=== PATIENT | female | born 1985 | race Hispanic/Latino ===

== ENCOUNTER 2017-10-25 18:50 | Emergency (ER) | payer MEDICAID, OTHER ==
[2017-10-25] MEDS ORDERED: Albuterol-Ipratrop 3 mg / 0.5 (3 ml) UD INH STA (19:35)
--- NOTE | 2017-10-25 21:14 | ED PDOC ---
HPI: Asthma Time Seen by Provider: 10/25/17 19:19 Chief Complaint (Nursing): Shortness Of Breath Chief Complaint (Provider): Asthma History Per: Patient History/Exam Limitations: no limitations Onset/Duration Of Symptoms: Days (one day) Additional Complaint(s): Selena Monteiro, a 32 year old patient presents to the Emergency Department complaining of asthma exacerbating onset one day. Reports of using her Albuterol inhaler and nebulizer with pump prior to arrival. Denies nasal discharge or sore throat. PMD: Gordon Syed Past Medical History Reviewed: Historical Data, Nursing Documentation, Vital Signs Vital Signs: Last Vital Signs Temp 100.1 F H 10/25/17 18:56 Pulse 92 H 10/25/17 18:56 Resp 19 10/25/17 18:56 BP 113/58 L 10/25/17 18:56 Pulse Ox 98 10/25/17 18:56 - Medical History PMH: Asthma Other PMH: obesity - Surgical History Other surgeries: gastric sleeve - Family History Family History: States: Other Other Family History: asthma - Social History Current smoker - smoking cessation education provided: Yes - Immunization History Hx Tetanus Toxoid Vaccination: No Hx Influenza Vaccination: Yes (2014) - Home Medications Home Medications: Ambulatory Orders Medication Instructions Recorded Dicyclomine [Bentyl] 20 mg PO Q12 PRN #20 tab 03/04/16 Ondansetron ODT [Zofran ODT] 4 mg PO Q6 PRN #16 odt 03/04/16 Ciprofloxacin [Cipro] 500 mg PO BID #14 tab 05/07/16 Ondansetron [Zofran] 4 mg PO Q6H PRN #10 tab 05/07/16 traMADol [Ultram] 50 mg PO TID PRN #12 tab 05/07/16 Nitrofurantoin Macrocrystals 100 mg PO BID #10 cap 12/05/16 [Macrobid] Azithromycin 1 tab PO DAILY #6 tab 10/25/17 Prednisone 50 mg PO DAILY #5 tablet 10/25/17 - Allergies Allergies/Adverse Reactions: Allergies Allergy/AdvReac Type Severity Reaction Status Date / Time seafood Allergy RASH Uncoded 10/25/17 18:56 Review of Systems ROS Statement: Except As Marked, All Systems Reviewed And Found Negative (As oer HPI, otherwise neagtive) ENT: Negative for: Nose Discharge, Throat Pain Cardiovascular: Positive for: Light Headedness. Negative for: Chest Pain Respiratory: Positive for: Cough, Shortness of Breath, Pleuritic Pain, Wheezing Physical Exam - Reviewed Nursing Documentation Reviewed: Yes Vital Signs Reviewed: Yes - Physical Exam Appears: Positive for: Non-toxic, In Acute Distress (mild respiratory) Head Exam: Positive for: ATRAUMATIC, NORMOCEPHALIC Skin: Positive for: Warm, Dry Eye Exam: Positive for: EOMI, PERRL ENT: Positive for: Pharynx Is (clear). Negative for: Pharyngeal Erythema, Tonsillar Exudate Neck: Positive for: Painless ROM, Supple Cardiovascular/Chest: Positive for: Regular Rate, Rhythm, Chest Non Tender. Negative for: Murmur Respiratory: Positive for: Respiratory Distress (mild tachypnea). Negative for : Rales, Wheezing Gastrointestinal/Abdominal: Positive for: Soft. Negative for: Tenderness Back: Positive for: Normal Inspection. Negative for: Decreased ROM Extremity: Negative for: Pedal Edema, Deformity Lymphatic: Negative for: Adenopathy Neurologic/Psych: Positive for: Alert. Negative for: Motor/Sensory Deficits - ECG ECG: Positive for: Interpreted By Nc ECG Rhythm: Positive for: Normal ST Segment, Sinus Rhythm, Atrial Fibrillation O2 Sat by Pulse Oximetry: 98 (RA) Pulse Ox Interpretation: Normal - Radiology X-Ray Interpretation: Infiltrates (RML) Medical Decision Making Medical Decision Making: Time: 19:20 Initial Impression: Asthma Initial Plan: --Urine dipstick --Urine --Chest X-ray --Albuterol/ Ipratropium 9ml INH --Peak Flow Pre/Post TX --Influenza A B --Reevaluation Scribe Attestation: Documented by Micheal Benson, acting as a scribe for Gin Zheng MD Provider Scribe Attestation: All medical record entries made by the Scribe were at my direction and personally dictated by me. I have reviewed the chart and agree that the record accurately reflects my personal performance of the history, physical exam, medical decision making, and the department course for this patient. I have also personally directed, reviewed, and agree with the discharge instructions and disposition. Disposition - Clinical Impression Clinical Impression: Pneumonia, Asthma exacerbation - Disposition Referrals: Gordon Syed MD [Family Provider] - Disposition: Routine/Home Disposition Time: 22:00 Condition: IMPROVED Additional Instructions: DRINK PLENTY OF HYDRATING FLUIDS AND REST FOLLOW UP WITH YOUR DOCTOR IN 2-3 DAYS FOR REEVALUATION Prescriptions: Azithromycin 1 tab PO DAILY #6 tab Prednisone 50 mg PO DAILY #5 tablet Instructions: Asthma (ED), Pneumonia (ED) Forms: [facility] ED School/Work Excuse
[2017-10-25 22:45] VITALS: BP 113/58; PULSE 92; RESP 18; TEMP 100.1; O2SAT 98
--- NOTE | 2017-10-26 11:26 | RAD ---
HISTORY: sob COMPARISON: No prior. TECHNIQUE: Chest PA and lateral FINDINGS: LUNGS: No active pulmonary disease. PLEURA: No significant pleural effusion identified. No pneumothorax apparent. CARDIOVASCULAR: Normal. OSSEOUS STRUCTURES: No significant abnormalities. VISUALIZED UPPER ABDOMEN: Normal. OTHER FINDINGS: None. IMPRESSION: No active disease.
== END 2017-10-25 22:43 | disposition home or self-care (01) ==
LOC: H.ER 18:50
DX: J45.901 Unspecified asthma with (acute) exacerbation (principal); J18.9 Pneumonia, unspecified organism; E66.9 Obesity, unspecified